=== PATIENT | female | born 1995 | race Two or more races ===

== ENCOUNTER 2019-01-09 08:18 | Inpatient (IN) | payer OTHER ==
[~2019-01-09] VITALS: Ht 152.4 cm; Wt 60.8 kg
[2019-01-09] MEDS ORDERED: PRENATAL TABLE1 EAC2 PO (10:07)
== END 2019-01-11 12:06 | disposition home or self-care (01) | DRG 798 ==
LOC: LDR 08:18 → OB/GYN 08:18
PROVIDERS: ADMIT Obstetrics & Gynecology
PROC: 10E0XZZ Delivery of Products of Conception, External Approach (ICD-10-PCS; principal; 2019-01-09)
PROC: 3E033VJ Introduction of Other Hormone into Peripheral Vein, Percutaneous Approach (ICD-10-PCS; 2019-01-09)
PROC: 4A1HXCZ Monitoring of Products of Conception, Cardiac Rate, External Approach (ICD-10-PCS; 2019-01-09)
PROC: 0UL70ZZ Occlusion of Bilateral Fallopian Tubes, Open Approach (ICD-10-PCS; 2019-01-10)
DX: O80 Encounter for full-term uncomplicated delivery (principal); Z37.0 Single live birth; Z3A.38 38 weeks gestation of pregnancy; Z30.2 Encounter for sterilization